=== PATIENT | male | born 1970 | race Caucasian/White ===

== ENCOUNTER 2018-11-12 23:46 | Emergency (ER) | payer MEDICAID ==
[~2018-11-12] VITALS: Ht 182.9 cm; Wt 80.3 kg
[~2018-11-12 23:46] MED LIST: ATEN25TA; LITH300C2; PHEN100C4
--- NOTE | 2018-11-12 23:50 | NUR ---
BIB SELF. TO ER BED 10. AOOX 4. NAD NOTED, BREATHING EVEN AND UNLABORED. AMBULATORY W/ LIMP. C/O L BELLA LACERATION 2ND TO HITTING A REBARB WHILE URINIRATING IN THE BUSHES. PT REPORTS FALLING INTO REBARB, NOTED LACERATION ON L BELLA 4.5 CM LONG. NOTED MIN BLEEDING. WOUND CLEANSE W/ NS AND READY FOR MD. TETANUS IS REPORTED NOT UPTO DATE.
[2018-11-13] MEDS ORDERED: LIDOCAINE 1%-EPI 1:100,000 20 ML VIAL ONE (00:30)
[2018-11-13] MEDS ORDERED: TDAP [DIPH/PERTUSSIS/TET] 0.5 ML VIAL IM ONE ×2 (00:30→00:40)
[2018-11-13] MEDS ORDERED: IBUPROFEN 400 MG TABLET ONE ×2 (01:17→02:00)
[2018-11-13] MEDS ORDERED: IBUPROFEN 400 MG TABLET PO ONE (01:30)
[2018-11-13] MEDS ORDERED: LIDOCAINE 1%-EPI 1:100,000 50 ML VIAL IJ ONE (01:30)
--- NOTE | 2018-11-13 01:45 | NUR ---
[place] QU[facility] AT BEDSIDE FOR SUTURE OF WOUND
--- NOTE | 2018-11-13 02:04 | NUR ---
EMT AT BEDSIDE FOR WOUND DRESSING. CLEANSE WITH NS. PAT DRY, BACITRACIN OINTMENT, NON ADHERENT DRESSING, GAUZE AND BANDAGE. WOUND CARE INSTRUCTION GIVEN.
[2018-11-13 02:05] VITALS: BP 148/75
--- NOTE | 2018-11-13 02:43 | NUR ---
Patient discharged to home in stable condition. Written and verbal after care instructions given. Patient verbalizes understanding of instruction. Pt ambulatory with a steady gait
== END 2018-11-13 02:43 | disposition home or self-care (01) ==
LOC: ER 23:49
DX: S81.812A Laceration without foreign body, left lower leg, initial encounter (principal); F31.9 Bipolar disorder, unspecified; F17.200 Nicotine dependence, unspecified, uncomplicated; Z98.890 Other specified postprocedural states; Z88.2 Allergy status to sulfonamides; Z79.899 Other long term (current) drug therapy; W22.8XXA Striking against or struck by other objects, initial encounter; Y93.89 Activity, other specified; Y92.89 Other specified places as the place of occurrence of the external cause; Y99.8 Other external cause status
CPT/HCPCS: 12002; 73590; 90471; 90715; 99283; A6403; J3490 ×2

== ENCOUNTER 2018-11-21 10:00 | Emergency (ER) | payer MEDICAID ==
[~2018-11-21] VITALS: Ht 182.9 cm; Wt 82.1 kg
[2018-11-21 10:15] VITALS: BP 171/101
--- NOTE | 2018-11-21 10:43 | NUR ---
for discharge- Patient discharged to previous living condition ([facility]) "its my choice I would rather give $$ to my elderly parents than pay for 1 BR apt" in stable condition. Written and verbal after care instructions given. Patient verbalizes understanding of instruction.
== END 2018-11-21 10:50 | disposition home or self-care (01) ==
LOC: ER 10:03
DX: S81.812D Laceration without foreign body, left lower leg, subsequent encounter (principal); R56.9 Unspecified convulsions; F31.9 Bipolar disorder, unspecified; F10.10 Alcohol abuse, uncomplicated; F17.200 Nicotine dependence, unspecified, uncomplicated; Y90.9 Presence of alcohol in blood, level not specified; Z98.890 Other specified postprocedural states; Z88.2 Allergy status to sulfonamides; Z59.0 Homelessness; X58.XXXD Exposure to other specified factors, subsequent encounter

== ENCOUNTER 2018-12-13 16:29 | Emergency (ER) | payer SELFPAY ==
[~2018-12-13] VITALS: Ht 175.3 cm; Wt 70.8 kg
[2018-12-13 16:42] VITALS: BP 156/88
[2018-12-13] MEDS ORDERED: IBUPROFEN 600 MG TABLET PO ONE ×2 (17:30→17:37)
== END 2018-12-13 18:10 | disposition home or self-care (01) ==
LOC: ER 16:29
DX: S81.812A Laceration without foreign body, left lower leg, initial encounter (principal); R56.9 Unspecified convulsions; F31.9 Bipolar disorder, unspecified; F10.10 Alcohol abuse, uncomplicated; F17.200 Nicotine dependence, unspecified, uncomplicated; Y90.9 Presence of alcohol in blood, level not specified; Z98.890 Other specified postprocedural states; Z88.2 Allergy status to sulfonamides; Z59.0 Homelessness; W26.8XXA Contact with other sharp object(s), not elsewhere classified, initial encounter; Y93.89 Activity, other specified; Y92.89 Other specified places as the place of occurrence of the external cause; Y99.8 Other external cause status
CPT/HCPCS: 99282; A6403

== ENCOUNTER 2019-01-13 11:51 | Emergency (ER) | payer MEDICAID ==
[~2019-01-13] VITALS: Ht 182.9 cm; Wt 81.6 kg
[2019-01-13 11:54] VITALS: BP 163/98
== END 2019-01-13 12:13 | disposition home or self-care (01) ==
LOC: ER 11:51
DX: L03.116 Cellulitis of left lower limb (principal); F10.20 Alcohol dependence, uncomplicated; R56.9 Unspecified convulsions; F31.9 Bipolar disorder, unspecified; F17.200 Nicotine dependence, unspecified, uncomplicated; Y90.9 Presence of alcohol in blood, level not specified; Z98.890 Other specified postprocedural states; Z88.2 Allergy status to sulfonamides; Z59.0 Homelessness